=== PATIENT | male | born 1990 | race African-American/Black ===

== ENCOUNTER 2018-07-09 22:44 | Emergency (ER) | payer OTHER, SELFPAY ==
[~2018-07-09] VITALS: Ht 172.7 cm; Wt 68.2 kg
[2018-07-09] MEDS ORDERED: ONDANSETRON HCL 4MG/2ML INJ IV STA (23:41)
[2018-07-09] MEDS ORDERED: OLANZAPINE 10 MG/VIAL IM STA (23:41)
[2018-07-09] MEDS ORDERED: SODIUM CHLORIDE 0.9% 1,000 ML IV ONE (23:41)
[2018-07-09] MEDS ORDERED: LORAZEPAM 2MG/ML CPJ IV STA (23:41)
[2018-07-10 00:11] LABS: BASOPHILS % 0.3 % (0.0-2.0); EOSINOPHILS % 1.4 % (0.0-5.0); HEMATOCRIT. 41.6 % (42.0-52.0); HEMOGLOBIN. 14.6 g/dL (14.0-18.0); LYMPHOCYTES % 57.8 % (20.0-50.0); MEAN CORPUSCULAR HEMOGLOBIN 30.8 pg (28.0-32.0); MEAN PLATELET VOLUME 7.2 fl (7.4-10.4); MONOCYTES % 8.7 % (2.0-8.0); NEUTROPHILS % 31.8 % (40.0-76.0); PLATELET 191 x1000/uL (130-400); RED BLOOD CELL COUNT 4.73 mill/uL (4.7-6.1); RED CELL DISTRIBUTION WIDTH 13.7 % (11.6-14.6)
[2018-07-10 00:15] LABS: CHLORIDE 107 mEq/L (98-107)
[2018-07-10 00:24] LABS: CREATINE KINASE 160 IU/L (39-308)
[2018-07-10 00:46] LABS: ETHANOL BLOOD 358 mg/dL
[2018-07-10 00:52] LABS: *AMPHETAMINES SCREEN URINE NEGATIVE (NEGATIVE); *BARBITURATES SCREEN URINE NEGATIVE (NEGATIVE); *BENZODIAZEPINES SCREEN URINE NEGATIVE (NEGATIVE); *COCAINE SCREEN URINE NEGATIVE (NEGATIVE); CANNABINOID URINE SCREEN NEGATIVE (NEGATIVE); PHENCYCLIDINE URINE SCREEN NEGATIVE (NEGATIVE)
[2018-07-10 00:53] LABS: METHADONE URINE SCREEN NEGATIVE (NEGATIVE); OPIATES URINE SCREEN NEGATIVE (NEGATIVE)
[2018-07-10 13:10] VITALS: BP 106/49
== END 2018-07-10 13:37 | disposition home or self-care (01) ==
LOC: ER 22:44
DX: S01.01XA Laceration without foreign body of scalp, initial encounter (principal); F99 Mental disorder, not otherwise specified; Z78.1 Physical restraint status; W01.0XXA Fall on same level from slipping, tripping and stumbling without subsequent striking against object, initial encounter; Y93.89 Activity, other specified; Y92.018 Other place in single-family (private) house as the place of occurrence of the external cause
CPT/HCPCS: 36415; 70450; 80053; 80305; 80307; 80320; 80329; 82550; 85025; 96372; 96374; 96375; 99284; J2060; J2405; J3490; J7030; Z7610; A4315; G0480